=== PATIENT | male | born 1945 | race American Indian/Alaskan Native ===

== ENCOUNTER 2016-12-20 23:13 | Inpatient (IN) | payer MEDICARE ==
[2016-12-21 00:17] LABS: Basophils % (Auto) 1.2 % (0.0-1.8); Eosinophils % (Auto) 1.7 % (0.0-4.3); Hematocrit 41.1 % (35.5-45.6); Hemoglobin 13.5 gm/dl (11.8-15.2); Mean Corpuscular HGB Conc 33 % (32-34); Mean Corpuscular Hemoglobin 29 pg (28-32); Mean Corpuscular Volume 87 fl (84-94); Platelet Count 311 K/mm3 (140-440); Red Blood Count 4.72 M/mm3 (3.65-5.03); Red Cell Distribution Width 14.6 % (13.2-15.2); White Blood Count 6.5 K/mm3 (4.5-11.0)
[2016-12-21 00:32] LABS: INR 1.13 (0.87-1.13)
[2016-12-21 00:33] LABS: Partial Thromboplastin Time 34.7 Sec. (24.2-36.6)
[2016-12-21 00:37] LABS: Anion Gap 24 mmol/L; BUN/Creatinine Ratio 11.11; Blood Urea Nitrogen 10 mg/dL (9-20); Calcium 9.3 mg/dL (8.4-10.2); Carbon Dioxide 20 mmol/L (22-30); Chloride 103.9 mmol/L (98-107); Glucose 86 mg/dL (75-100); Potassium 3.6 mmol/L (3.6-5.0); Sodium 144 mmol/L (137-145)
--- NOTE | 2016-12-21 00:49 | Cat Scan Report ---
FINAL REPORT PROCEDURE: CT HEAD/BRAIN WO CON TECHNIQUE: Computerized tomography of the head was performed without contrast material. HISTORY: NUMBNESS IN ARMS AND LEGS X 2 WEEKS , FALLING COMPARISON: No prior studies are available for comparison. FINDINGS: Skull and scalp: Normal. Paranasal sinuses: Normal. Ventricles and subarachnoid spaces: Normal. Cerebrum: No evidence of hemorrhage, acute infarction or mass. Mild atrophy. Slight periventricular deep white matter changes. Cerebellum and brainstem: No evidence of hemorrhage, acute infarction or mass. Vasculature: Normal. Comments: None. IMPRESSION: There is no evidence of an acute intracranial process. Minimal atrophy is noted. Slight periventricular deep white matter changes.
--- NOTE | 2016-12-21 01:01 | Emergency Department Report ---
HPI - General Chief Complaint: Neuro Symptoms/Deficit Time Seen by Provider: 12/21/16 00:45 - HPI HPI: Room 8 The patient is a 71-year-old male presenting with a chief complaint of weakness and numbness in the extremities. The patient states for approximately 8 days he 's had intermittent numbness in both legs from mid thigh distally. Patient also complains of weakness in the left leg which causes him to fall at times. The patient states he exhibits numbness intermittently in both hands in addition to weakness as he has difficulty picking things up mostly with the right hand. Patient denies dysarthria, dysphagia or headache. The patient had 2 falls today. States that he has difficulty controlling his left lower extremity. Location: [see above] Duration: Intermittent times 8 days Quality: Numbness, weakness Severity: Moderate Modifying factors: [see above] Context: [see above] Mode of transportation: Unknown ED Past Medical Hx - Past Medical History Previous Medical History?: No - Surgical History Past Surgical History?: Yes Additional Surgical History: Lumbar disc surgery 2003 - Family History Family history: no significant - Social History Smoking Status: Former Smoker (none 30 years) Substance Use Type: None (denies illicit drug use) - Medications Home Medications: Home Medications Medication Instructions Recorded Confirmed Last Taken Type No Known Home Medications [No 12/21/16 12/21/16 Unknown History Reported Home Medications] ED Review of Systems ROS: Stated complaint: POSS STROKE Other details as noted in HPI Comment: All other systems reviewed and negative Constitutional: denies: chills, fever Eyes: denies: eye pain, eye discharge, vision change ENT: denies: ear pain, throat pain Respiratory: denies: cough, shortness of breath, wheezing Cardiovascular: denies: chest pain, palpitations Endocrine: no symptoms reported Gastrointestinal: denies: abdominal pain, nausea, diarrhea Genitourinary: denies: urgency, dysuria Musculoskeletal: denies: back pain, joint swelling, arthralgia Skin: denies: rash, lesions Neurological: weakness, numbness, paresthesias. denies: headache Psychiatric: denies: anxiety, depression Hematological/Lymphatic: denies: easy bleeding, easy bruising Physical Exam - Physical Exam Vital Signs: Vital Signs 12/20/16 23:32 Temperature 98.1 F Pulse Rate 74 Blood Pressure 121/72 O2 Sat by Pulse 97 Oximetry Physical Exam: GENERAL: The patient is well-developed well-nourished male lying on stretcher not appearing to be in acute distress. [] HEENT: Normocephalic. Atraumatic. Extraocular motions are intact. Patient has moist mucous membranes. NECK: Supple. Trachea midline CHEST/LUNGS: Clear to auscultation. There is no respiratory distress noted. HEART/CARDIOVASCULAR: Regular. There is no tachycardia. There is no gallop rub or murmur. ABDOMEN: Abdomen is soft, nontender. Patient has normal bowel sounds. There is no abdominal distention. SKIN: There is no rash. There is no edema. There is no diaphoresis. NEURO: The patient is awake, alert, and oriented. The patient is cooperative. The patient has no focal neurologic deficits. The patient has normal speech. Cranial nerves II through XII grossly intact, no drift, bath steward/stewardess equal bilaterally. Moves all extremities well. Normal sensation throughout MUSCULOSKELETAL: There is no evidence of acute injury. ED Course Vital Signs 12/20/16 23:32 Temperature 98.1 F Pulse Rate 74 Blood Pressure 121/72 O2 Sat by Pulse 97 Oximetry ED Medical Decision Making - Lab Data Result diagrams: 12/20/16 23:48 12/20/16 23:48 Laboratory Tests 12/20/16 12/20/16 12/20/16 23:48 23:48 23:48 WBC 6.5 RBC 4.72 Hgb 13.5 Hct 41.1 MCV 87 MCH 29 MCHC 33 RDW 14.6 Plt Count 311 Lymph % (Auto) 39.6 H [place] % (Auto) 6.4 Eos % (Auto) 1.7 Baso % (Auto) 1.2 Lymph # 2.6 [place] # 0.4 Eos # 0.1 Baso # 0.1 Seg Neutrophils % 51.1 Seg Neutrophils # 3.3 PT 14.4 INR 1.13 APTT 34.7 Thrombin Time Sodium 144 Potassium 3.6 Chloride 103.9 Carbon Dioxide 20 L Anion Gap 24 BUN 10 Creatinine 0.9 Estimated GFR > 60 BUN/Creatinine Ratio 11.11 Glucose 86 Calcium 9.3 Troponin T < 0.010 12/20/16 23:48 WBC RBC Hgb Hct MCV MCH MCHC RDW Plt Count Lymph % (Auto) [place] % (Auto) Eos % (Auto) Baso % (Auto) Lymph # [place] # Eos # Baso # Seg Neutrophils % Seg Neutrophils # PT INR APTT Thrombin Time 15.8 Sodium Potassium Chloride Carbon Dioxide Anion Gap BUN Creatinine Estimated GFR BUN/Creatinine Ratio Glucose Calcium Troponin T Laboratory Tests 12/20/16 12/20/16 12/20/16 23:48 23:48 23:48 WBC 6.5 RBC 4.72 Hgb 13.5 Hct 41.1 MCV 87 MCH 29 MCHC 33 RDW 14.6 Plt Count 311 Lymph % (Auto) 39.6 H [place] % (Auto) 6.4 Eos % (Auto) 1.7 Baso % (Auto) 1.2 Lymph # 2.6 [place] # 0.4 Eos # 0.1 Baso # 0.1 Seg Neutrophils % 51.1 Seg Neutrophils # 3.3 PT 14.4 INR 1.13 APTT 34.7 Thrombin Time Sodium 144 Potassium 3.6 Chloride 103.9 Carbon Dioxide 20 L Anion Gap 24 BUN 10 Creatinine 0.9 Estimated GFR > 60 BUN/Creatinine Ratio 11.11 Glucose 86 POC Glucose Calcium 9.3 Total Creatine Kinase Troponin T < 0.010 Urine Bilirubin Urine RBC (Auto) U Epithel Cells (Auto) 12/20/16 12/20/16 12/21/16 23:48 23:48 01:10 WBC RBC Hgb Hct MCV MCH MCHC RDW Plt Count Lymph % (Auto) [place] % (Auto) Eos % (Auto) Baso % (Auto) Lymph # [place] # Eos # Baso # Seg Neutrophils % Seg Neutrophils # PT INR APTT Thrombin Time 15.8 Sodium Potassium Chloride Carbon Dioxide Anion Gap BUN Creatinine Estimated GFR BUN/Creatinine Ratio Glucose POC Glucose 86 Calcium Total Creatine Kinase 504 H Troponin T Urine Bilirubin Urine RBC (Auto) U Epithel Cells (Auto) 12/21/16 01:14 WBC RBC Hgb Hct MCV MCH MCHC RDW Plt Count Lymph % (Auto) [place] % (Auto) Eos % (Auto) Baso % (Auto) Lymph # [place] # Eos # Baso # Seg Neutrophils % Seg Neutrophils # PT INR APTT Thrombin Time Sodium Potassium Chloride Carbon Dioxide Anion Gap BUN Creatinine Estimated GFR BUN/Creatinine Ratio Glucose POC Glucose Calcium Total Creatine Kinase Troponin T Urine Bilirubin Neg Urine RBC (Auto) 5.0 U Epithel Cells (Auto) < 1.0 - EKG Data -: EKG Interpreted by Me EKG shows normal: sinus rhythm Rate: normal - EKG Data When compared to previous EKG there are: previous EKG unavailable Interpretation: nonspecific ST-T wave dominique (T-wave inversion in lead aVL) - Radiology Data Radiology results: report reviewed (CT head), image reviewed (CT head) CT head (read by radiologist)-there is no evidence of acute intracranial process. Minimal atrophy is noted. Slight periventricular deep white matter changes. - Differential Diagnosis TIA, polymyositis, multiple sclerosis, carpal tunnel syndrome Critical care attestation.: If time is entered above; I have spent that time in minutes in the direct care of this critically ill patient, excluding procedure time. ED Disposition Clinical Impression: TIA (transient ischemic attack) Disposition: DC-[id number] OP ADMIT IP TO THIS HOSP Is pt being admited?: Yes Does the pt Need Aspirin: Yes Condition: Fair Referrals: PRIMARY CARE, [Primary Care Provider] - 3-5 Days Time of Disposition: 01:05 (hospitalist paged)
[2016-12-21] MEDS ORDERED: ASPIRIN PO ONE (01:05)
[2016-12-21] MEDS ORDERED: TYLENOL PO PRN (02:34)
[2016-12-21 02:38] LABS: Bilirubin,Urine NEG (Negative); Blood,Urine SM (Negative); Ketones,Urine NEG (Negative); Leukocyte Esterase,Urine NEG (Negative); Mucus,Urine FEW /HPF; Nitrite,Urine NEG (Negative); Protein,Urine <15 mg/dL mg/dL (Negative); Urobilinogen,Urine < 2.0 mg/dL (<2.0)
[2016-12-21] MEDS: NACL 0.9% 1000 ML 1,000 ML IV SCH ×2 (04:47→22:27)
--- NOTE | 2016-12-21 05:26 | History and Physical Report ---
CHIEF COMPLAINT: Numbness in the lower extremities and also weakness in the lower extremities. HISTORY OF PRESENTING ILLNESS: The patient is a 71-year-old male who has been having intermittent numbness in both legs going on for 8 days and also there is a complaint of weakness in the left leg, which causes the patient to fall down from time to time. The patient also complained of numbness in both hands with some weakness also in both hands making it difficult to picker operator things. The patient denies any history of speech impairment. Denies any history of dizziness, headache, or any problem with swallowing. PAST MEDICAL HISTORY: Unremarkable. PAST SURGICAL HISTORY: Pertinent for lumbar disk surgery in 2003. FAMILY HISTORY: Noncontributory. SOCIAL HISTORY: The patient is a former smoker. Does not smoke cigarettes anymore. Does not drink alcohol and does not use illicit drugs. MEDICATIONS: The patient is on 1% hydrocortisone cream, which is applied topically 3 times a day. ALLERGIES: There is no known drug allergy. REVIEW OF SYSTEMS: CONSTITUTIONAL: There is no fever. No chills. No diaphoresis. HEENT: There is no headache or sore throat. CARDIOVASCULAR: There is no chest pain or orthopnea. RESPIRATORY: There is no shortness of breath or cough. GASTROINTESTINAL: There is no nausea, no vomiting, no abdominal pain, diarrhea, or constipation. NEUROLOGIC: Numbness in both upper and lower limbs noted. Weakness involving both upper limbs and left leg noted. There is no change in mental status. MUSCULOSKELETAL: Weakness in both upper limbs and the left leg noted. There is no joint swelling. DERMATOLOGIC: There is no skin rash or itching. GENITOURINARY: There is no dysuria, hematuria, or flank pain. Rest of system review is normal. PHYSICAL EXAMINATION: GENERAL: At the time of exam, the patient was found to be alert, oriented x3, and not in acute distress. VITAL SIGNS: Temperature of 98.1 degrees Fahrenheit, pulse of 74, respirations 16, blood pressure 116/64, O2 sat of 96% on room air. HEENT: Pupils to be equal, round, reactive to light and accommodating. Extraocular muscles are intact. NECK: Supple with no JVD or carotid bruit. CARDIOVASCULAR SYSTEM: First and second heart sounds with no gallops or murmur. RESPIRATORY SYSTEM: Good air entry on both sides of the lung with no abnormal breath sounds. GASTROINTESTINAL: Abdomen to be full, soft, nontender with no organomegaly or rigidity. NEUROLOGIC: No focal deficits. MUSCULOSKELETAL: No joint tenderness or swelling. DERMATOLOGIC: No skin rash. GENITOURINARY: No costovertebral angle tenderness. PERTINENT LABORATORY AND IMAGING STUDIES: The patient has CBC done that came back unremarkable, except for CBC differential that shows elevated lymphocyte count of 39.6%. The patient's chemistry shows slight decrease in CO2 of 20 and slightly elevated total CPK of 504. The patient had a CT of the head done with no contrast and the results show there is no evidence of acute intracranial process. There is finding of minimal atrophy and slight periventricular deep white matter changes. DIAGNOSES: 1. Numbness and weakness of the upper and lower limbs. 2. Transient ischemic attack. PLAN: The patient will be admitted to medical floor on telemetry and will have MRI of the brain without contrast done in the morning. The patient will also have complete echocardiogram done this morning with the on-call computer hardware designer to read and the patient will be on bilateral carotid Doppler. DVT prophylaxis will be through sequential compressive device, and the patient will be on IV normal saline at 75 mL an hour and will have physical therapy evaluation and treatment in the morning. The patient will be on aspirin 325 mg by mouth daily and will be on p.r.n. medications like Tylenol 650 mg every 4 hours for fever and headache. The patient's diet will be regular diet. There is no Neurology consult at this time but whenever the Neurology consult comes on board and if the patient is still on admission, there will be consult. JOB# [id number] OCN/NTS
[2016-12-21 06:21] LABS: Creatine Kinase MB 6.3 ng/mL (0.0-4.0)
[2016-12-21 06:24] LABS: Creatine Kinase 493 units/L (55-170)
--- NOTE | 2016-12-21 12:51 | Magnetic Resonance Report ---
MRI OF THE BRAIN WITHOUT CONTRAST: HISTORY: TIA PROCEDURE: Multiplanar, multisequence MR imaging of the brain without IV contrast was performed. FINDINGS: Mild nonspecific chronic periventricular white matter changes are identified. Otherwise, the brain parenchyma signal intensity and its garcia-white interface are within normal limits. No evidence for acute ischemia, hemorrhage or mass. No chronic infarct or extra-axial fluid collection. The midline structures are central. The basal cisterns are patent. Normal ventricular size. The orbital cavities and sella turcica demonstrate no abnormality. The visualized paranasal sinuses and mastoid air cells are well aerated. IMPRESSION: Mild nonspecific chronic white matter changes. No acute intracranial process.
--- NOTE | 2016-12-21 12:51 | Magnetic Resonance Report ---
MRA HEAD WITHOUT CONTRAST HISTORY: Stroke, TIA. Cbci-[id number]-dzuady imaging with MIP reformations of the elim ira of [place] is submitted. The arteries appear widely patent and free of hemodynamically significant stenosis or aneurysm dilatation. Both vertebral arteries are identified appearing patent as well. IMPRESSION: Unremarkable MRA head.
[2016-12-21] MEDS: ASPIRIN PO SCH (14:00)
[2016-12-21] MEDS ORDERED: ATIVAN IV NR (14:15)
--- NOTE | 2016-12-21 14:21 | Progress Note ---
Assessment and Plan Assessment and plan: Patient is 71-year-old man history of chronic back pain on narcotics who presents with bilateral hand weakness, poor strength in his hands. Patient was admitted for stroke versus TIA versus other. MRI of the brain shows no acute findings, carotid ultrasound read as unremarkable. Pcp Dr. Cummings -Paresthesias of the hands no TIA because symptoms resolved, no CVA, was likely arthritic/carpal tunnel syndrome -Bradycardia: Continue telemetry, echo still pending -Paresthesias of the legs degenerative: Ordered MRI of the spine patient's positive Almeida been having will go tomorrow with bonding and composite fabricator IV Ativan. -Chronic pain syndrome on narcotics: Continue to monitor -DVT prophylaxis: Added subcutaneous Lovenox Full code Disposition: Echocardiogram pending, anticipate discharge tomorrow History Interval history: Patient seen and examined. Follow up on current diagnosis/bilateral hand weakness. Overnight uneventful. No cp, sob, n/v or severe headaches. Imaging, old records, testing, labs, nursing notes reviewed. at bedside gives a history of difficult ambulation, bilateral thigh pains, poor balance and would like his old herniated back disc to be re-evaluated. Hospitalist Physical - Physical exam Narrative exam: GEN: WDWN, NAD, AWAKE, ALERT, ORIENTATED x 3 HEENT: NCAT, PERRL, EOMI, OP CLEAR NECK: SUPPLE, NO THYROMEGALY, NO JVD, NO LAD CVS: Regular bradycardia, NORMAL S1S2 LUNGS/CHEST: CTA B, NORMAL CHEST EXPANSION B, GOOD AIR ENTRY B ABD: SOFT, NTND, GBS, NO REBOUND OR GUARDING EXT/SKIN: NO SIGNIFICANT EDEMA OR RASH MSK: FROM X 4 EXTREMITIES NEURO: CN 2-12 GROSSLY INTACT, NO new FOCAL DEFICITS PSY: CALM - Constitutional Vitals: Temp Pulse Resp BP Pulse Ox 97.8 F 81 18 125/72 97 12/21/16 08:49 12/21/16 10:08 12/21/16 10:00 12/21/16 08:49 12/21/16 10:00 Results - Labs CBC & Chem 7: 12/20/16 23:48 12/20/16 23:48 Labs: Laboratory Last Values WBC 6.5 K/mm3 (4.5-11.0) 12/20/16 23:48 RBC 4.72 M/mm3 (3.65-5.03) 12/20/16 23:48 Hgb 13.5 gm/dl (11.8-15.2) 12/20/16 23:48 Hct 41.1 % (35.5-45.6) 12/20/16 23:48 MCV 87 fl (84-94) 12/20/16 23:48 MCH 29 pg (28-32) 12/20/16 23:48 MCHC 33 % (32-34) 12/20/16 23:48 RDW 14.6 % (13.2-15.2) 12/20/16 23:48 Plt Count 311 K/mm3 (140-440) 12/20/16 23:48 Lymph % (Auto) 39.6 % (13.4-35.0) H 12/20/16 23:48 [place] % (Auto) 6.4 % (0.0-7.3) 12/20/16 23:48 Eos % (Auto) 1.7 % (0.0-4.3) 12/20/16 23:48 Baso % (Auto) 1.2 % (0.0-1.8) 12/20/16 23:48 Lymph # 2.6 K/mm3 (1.2-5.4) 12/20/16 23:48 [place] # 0.4 K/mm3 (0.0-0.8) 12/20/16 23:48 Eos # 0.1 K/mm3 (0.0-0.4) 12/20/16 23:48 Baso # 0.1 K/mm3 (0.0-0.1) 12/20/16 23:48 Seg Neutrophils % 51.1 % (40.0-70.0) 12/20/16 23:48 Seg Neutrophils # 3.3 K/mm3 (1.8-7.7) 12/20/16 23:48 PT 14.4 Sec. (12.2-14.9) 12/20/16 23:48 INR 1.13 (0.87-1.13) 12/20/16 23:48 APTT 34.7 Sec. (24.2-36.6) 12/20/16 23:48 Thrombin Time 15.8 Sec. (15.1-19.6) 12/20/16 23:48 Sodium 144 mmol/L (137-145) 12/20/16 23:48 Potassium 3.6 mmol/L (3.6-5.0) 12/20/16 23:48 Chloride 103.9 mmol/L (98-107) 12/20/16 23:48 Carbon Dioxide 20 mmol/L (22-30) L 12/20/16 23:48 Anion Gap 24 mmol/L 12/20/16 23:48 BUN 10 mg/dL (9-20) 12/20/16 23:48 Creatinine 0.9 mg/dL (0.8-1.5) 12/20/16 23:48 Estimated GFR > 60 ml/min 12/20/16 23:48 BUN/Creatinine Ratio 11.11 % 12/20/16 23:48 Glucose 86 mg/dL (75-100) 12/20/16 23:48 POC Glucose 86 (70-105) 12/21/16 01:10 Calcium 9.3 mg/dL (8.4-10.2) 12/20/16 23:48 Total Creatine Kinase 493 units/L (55-170) H 12/21/16 05:40 CK-MB (CK-2) 6.3 ng/mL (0.0-4.0) H 12/21/16 05:40 CK-MB (CK-2) Rel Index 1.2 (0-4) 12/21/16 05:40 Troponin T < 0.010 ng/mL (0.00-0.029) 12/21/16 05:40 Urine Color Yellow (Yellow) 12/21/16 01:14 Urine Turbidity Clear (Clear) 12/21/16 01:14 Urine pH 5.0 (5.0-7.0) 12/21/16 01:14 Ur Specific [place] 1.023 (1.003-1.030) 12/21/16 01:14 Urine Protein <15 mg/dl mg/dL (Negative) 12/21/16 01:14 Urine Glucose (UA) Neg mg/dL (Negative) 12/21/16 01:14 Urine Ketones Neg mg/dL (Negative) 12/21/16 01:14 Urine Blood Sm (Negative) 12/21/16 01:14 Urine Nitrite Neg (Negative) 12/21/16 01:14 Urine Bilirubin Neg (Negative) 12/21/16 01:14 Urine Urobilinogen < 2.0 mg/dL (<2.0) 12/21/16 01:14 Ur Leukocyte Esterase Neg (Negative) 12/21/16 01:14 Urine WBC (Auto) 1.0 /HPF (0.0-6.0) 12/21/16 01:14 Urine RBC (Auto) 5.0 /HPF (0.0-6.0) 12/21/16 01:14 U Epithel Cells (Auto) < 1.0 /HPF (0-13.0) 12/21/16 01:14 Calcium Oxalate Crystal 2+ 12/21/16 01:14 Urine Mucus Few /HPF 12/21/16 01:14
[2016-12-21 14:25] LABS: Creatine Kinase MB 7.3 ng/mL (0.0-4.0)
[2016-12-21 14:26] LABS: Creatine Kinase 603 units/L (55-170)
--- NOTE | 2016-12-21 15:09 | Admit Criteria Form ---
Admission Criteria Documentation: NEUROLOGY GRG Clinical Indications for Admission to Inpatient Care (Place ' X' for any and all applicable criteria): Hospital admission is needed for appropriate care of the patient because of 1 or more of the following: [ ]I. Encephalitis [ ]II. Severe [employer]LECT[employer] infections indicated by 1 or more of the following(1)(2)(3) : [ ]a) Intracranial abscess [ ]b) Spinal abscess or myelitis [ ]c) Tuberculous or other nonbacterial, nonviral ELECTRICIAN MA[employer] infection(8) [ ]III. Vasculitis and 1 or more of the following(14)(15): []a) Altered mental status that is severe or persistent or other acute neurologic change []b) Psychosis []c) Seizure [ ]IV. Status epilepticus or repetitive seizures not controlled with emergent treatment [A] (7)(8) [ ]V. Altered mental status that is severe or persistent [ ]. Transient alteration in consciousness with high-risk etiology; examples include (12)(13): [ ]a) Cardiovascular source [ ]b) Cataplexy [ ]VII. Cerebral aneurysm requiring ANY ONE of the following(14): [ ]a) IV antihypertensives or vasoactive agents [ ]b) Sedation and analgesia for suspected leak [ ]c) Need for external ventricular drainage and cerebral perfusion pressure monitoring [ ]d) Emergent evaluation to determine need for surgical clipping or endovascular coiling by interventional radiology. If surgery is required ( Also use Craniotomy, Supratentorial, for Surgery of Bleeding Intracranial Aneurysm (for bleeding aneurysm) or Craniotomy, Supratentorial (for nonbleeding aneurysm) as appropriate. [ ]VIII. New-onset severe neurologic symptom requiring inpatient care indicated by ANY ONE of the following: [ ]a) Aphasia(15) [ ]b) Weakness (grade 3 or less) [ ]c) Paralysis (eg, hemiplegia) [ ]d) Spasticity(16) [ ]e) Dystonia [ ]e) Ataxia(17) [ ]f) Amnesia(18) [ ]g) Involuntary movements(19) [ ]h) Vertigo [ ] Visual loss [ ]i) Other severe neurologic finding (eg, papilledema, mass effect on imaging, myoclonus not treatable at alternative level of care (eg, observation care) [ ]IX. Guillain-[place] syndrome(20) [ ]X. Myasthenia gravis crisis or inpatient monitoring need as indicated by 1 or more of the following(21): [ ]a) Intensive treatment (eg, course of plasmapheresis) with inadequate outpatient situation to monitor patients status [ ]b) Inadequate airway protection [ ]c) Respiratory insufficiency requiring intubation or inpatient. monitoring [ ]d) Progressive dysphagia with failure to thrive [ ]XI. Multiple sclerosis or other acute demyelinating disease requiring inpatient care as indicated by 1 or more of the following (22)(23): [ ]a) Acute severe deterioration requiring inpatient treatment (eg, IV steroids, plasmapheresis, close observation) [ ]b) Acute complication requiring inpatient care (eg, sepsis, severe decubitus, aspiration) [ ]XII.Parkinson disease requiring inpatient care (Also use Optimal Recovery Care Criteria or General Recovery Criteria as appropriate) indicated by 1 or more of the following(25): [ ]a) Infection (eg, aspiration pneumonia) not treatable at alternative level of care [ ]b Dehydration that is severe or persistent [ ]c) Life-threatening agitation or psychotic behavior not treatable on emergency, observation care, or alternative level (eg, residential) basis [ ]d) Severe medication withdrawal effects (eg, freezing, neuroleptic malignant syndrome) not responsive to emergency and observation care treatment ( as appropriate) [ ]e) Other severe manifestation not treatable at alternative level of care [ ]XII. Amyotrophic lateral sclerosis with inpatient care needs as indicated by ANY ONE of the following(26): [ ]a) Acute complications (eg, aspiration pneumonia, sepsis ) requiring inpatient care ( see other optimal Recovery Guideline as appropriate) [ ]b) Dehydration that is severe persistent AND artificial support desired [ ]c) Inadequate airway protection AND artificial support desired [ ]d) Severe ventilatory insufficiency AND artificial support desired [ ]XIII. Myasthenia gravis crisis or inpatient monitoring need as indicated by 1 or more of the following(21): [] a) Inadequate airway protection []b) Respiratory insufficiency requiring intubation or inpatient monitoring []c) Progressive dysphagia with failure to thrive []d) Intensive treatment (e.g., course of plasmapheresis) with inadequate outpatient situation to monitor patients status [ ]XIV. Multiple sclerosis or other acute demyelinating disease requiring inpatient care indicated by 1 or more of the following[C](36)(43)(44)(45)(46): []a) Acute severe deterioration requiring inpatient treatment (eg, IV steroids, plasmapheresis, close observation) []b) Acute complication requiring inpatient care (eg, sepsis, severe decubitus, aspiration) [ ]XV. Intracranial hypertension (e.g., pseudotumor cerebri) requiring inpatient care (e.g., acute visual loss, inadequate oral intake) (47)(48)(49) [ ]XVI. Parkinson disease requiring inpatient care (Also use Optimal Recovery Care Criteria or General Recovery Criteria as appropriate) indicated by 1 or more of the following(25): [] a) Infection (e.g., aspiration pneumonia) not treatable at alternative level of care []b) Volume depletion not responsive to emergency and observation care treatment (as appropriate) []c) Life-threatening agitation or psychotic behavior not treatable on emergency, observation care, or alternative level (e.g., residential) basis []d) Severe medication withdrawal effects (e.g., freezing, neuroleptic malignant syndrome) not responsive to emergency and observation care treatment (as appropriate) []e) Other severe manifestation not treatable at alternative level of care [ ]XVII. Amyotrophic lateral sclerosis with inpatient care needs as indicated by1 or more of the following(42): []a) Acute complications (eg, aspiration pneumonia, sepsis) requiring inpatient care (see other Optimal Recovery Guideline or General Recovery Guideline as appropriate) []b) Dehydration that is severe or persistent AND artificial support desired []c) Inadequate airway protection AND artificial support desired []d) Severe ventilatory insufficiency AND artificial support desired [ ]XVIII. Severe myopathy, neuropathy, or other neuromuscular disease indicated by 1 or more of the following(42)(52)(53)(54): []a ) New-onset severe diffuse weakness (eg, strength 3/5 or less) []b) Severe dysphagia []c) Dyspnea at rest or with minimal exertion (new) []d) Inadequate airway protection []e) Inadequate ventilation indicated by 1 or more of the following : i) Partial pressure of carbon dioxide greater than 44 mm Hg ( 5.9 kPa) (new) ii) Reduced peak expiratory flow rate (new) iii) Vital capacity less than 50% of predicted (less than 15 mL/kg) iv) Peak inspiratory force less negative than -30 cm H2O (- 2942 Pa) [ ]XVII.Complications of congenital or degenerative disease (eg, infection, seizures, dehydration, injury) not responsive to emergency and observation care treatment (as appropriate ) [C](16)(29)(30) [ ]XVIII.Suspected or confirmed nerve or muscle toxic injury, including ANY ONE of the following: [ ]a) Rhabdomyolysis(31) i) Acute renal failure ii) Dehydration that is severe or persistent iii) Altered mental status that is severe or persistent iv) Electrolyte abnormality that remains after emergency or observation level care ( as appropriate) [ ]b) Botulism(32) [ ]c) Other severe toxin-induced sign or symptom [ ]XIX. Neurologic trauma requiring inpatient treatment (medical) indicated by ANY ONE of the following(33)(34): [ ]a) Vital signs or neurologic signs more frequently than every 4 hours [ ]b) Hyperosmolar therapy [ ]c) Respiratory monitoring [ ]d) Intracranial pressure monitoring and treatment [ ]e) Stabilization and immobilization device placement (eg, braces, body jacket) [ ]f) Intubation & mechanical ventilation for airway protection or therapeutic hyperventilation [ ]g) Other treatment or monitoring needed that requires inpatient level of care [ ]XX.Complications of neurologic devices (eg, ventricular shunt, neurostimulator) requiring 1 or more of the following(35)(36): [ ]a) IV antibiotics with monitoring while awaiting culture results [ ]b) Monitoring for hydrocephalus [X ]XXI. Neurology condition symptom, or finding for which emergency and observation care have failed or are not considered appropriate. See General Criteria: Observation Care ISC, General Admission Criteria GRG, or Pediatric General Admission Criteria GRG guideline as appropriate. The original [facility] M[facility] content created by [employer] has been revised. The portions of the content which have been revised are identified through the use of italic text or in bold, and [facility] has neither reviewed nor approved the modified material. All other unmodified content is copyright [facility] Please see references footnoted in the original [facility] edition 2016 Admission Criteria Met: Yes
[2016-12-22 05:37] LABS: Hematocrit 36.5 % (35.5-45.6); Mean Corpuscular HGB Conc 33 % (32-34); Mean Corpuscular Hemoglobin 28 pg (28-32); Mean Corpuscular Volume 86 fl (84-94); Platelet Count 250 K/mm3 (140-440); Red Blood Count 4.24 M/mm3 (3.65-5.03); Red Cell Distribution Width 14.7 % (13.2-15.2); White Blood Count 5.6 K/mm3 (4.5-11.0)
[2016-12-22 06:05] LABS: Anion Gap 18 mmol/L; BUN/Creatinine Ratio 13.33; Blood Urea Nitrogen 12 mg/dL (9-20); Calcium 8.7 mg/dL (8.4-10.2); Carbon Dioxide 25 mmol/L (22-30); Chloride 103.9 mmol/L (98-107); Glucose 107 mg/dL (75-100); Potassium 4.2 mmol/L (3.6-5.0); Sodium 143 mmol/L (137-145)
[2016-12-22] MEDS: ASPIRIN PO SCH (10:00)
[2016-12-22] MEDS ORDERED: ATIVAN IV ONE (11:08)
--- NOTE | 2016-12-22 12:53 | Consultation ---
History of Present Illness Consult date: 12/22/16 Consult reason: bradycardia History of present illness: This is a 71yr old male who presented with bilateral upper and lower extremity numbness resulting in frequent falls. Cardiac consultation is requested for sinus bradycardia seen on telemetry. There is no reported chest pain, shortness of breath or dizziness. There was no loss of consciousness. Patient has remained asymptomatic. Labs shows a normal TSH. Patient has no prior cardiac history or workup. Medications and Allergies Allergies Allergy/AdvReac Type Severity Reaction Status Date / Time No Known Allergies Allergy Verified 12/21/16 01:18 Home Medications Medication Instructions Recorded Confirmed Last Taken Type No Known Home Medications [No 12/21/16 12/21/16 Unknown History Reported Home Medications] Active Meds: Active Medications Acetaminophen (Tylenol) 650 mg PO Q4H PRN PRN Reason: For Pain/Fever/Headache Last Admin: 12/22/16 05:19 Dose: 650 mg Aspirin (Aspirin) 325 mg PO QDAY FREDDIE Last Admin: 12/22/16 10:00 Dose: 325 mg Enoxaparin Sodium (Lovenox) 40 mg SUB-Q QDAY@2200 FRDEDIE Sodium Chloride (Nacl 0.9% 1000 Ml) 1,000 mls @ 75 mls/hr IV DIRECT FREDDIE Last Admin: 12/21/16 22:27 Dose: 75 mls/hr Physical Examination Vital Signs Temp Pulse BP Pulse Ox 98.1 F 74 121/72 97 12/20/16 23:32 12/20/16 23:32 12/20/16 23:32 12/20/16 23:32 Results 12/22/16 04:34 12/22/16 04:34 Cardiac Enzymes 12/21/16 Range/Units 13:25 CK-MB (CK-2) 7.3 H (0.0-4.0) ng/mL CBC 12/22/16 Range/Units 04:34 WBC 5.6 (4.5-11.0) K/mm3 RBC 4.24 (3.65-5.03) M/mm3 Hgb 12.0 (11.8-15.2) gm/dl Hct 36.5 (35.5-45.6) % Plt Count 250 (140-440) K/mm3 Comprehensive Metabolic Panel 12/22/16 Range/Units 04:34 Sodium 143 (137-145) mmol/L Potassium 4.2 (3.6-5.0) mmol/L Chloride 103.9 (98-107) mmol/L Carbon Dioxide 25 (22-30) mmol/L BUN 12 (9-20) mg/dL Creatinine 0.9 (0.8-1.5) mg/dL Glucose 107 H (75-100) mg/dL Calcium 8.7 (8.4-10.2) mg/dL Assessment and Plan Numbness/weakness of bilateral upper and lower extremities Sinus bradycardia -patient remains asymptomatic normal TSH normal LV systolic function, EF 55-60% on echo
--- NOTE | 2016-12-22 12:54 | Progress Note ---
Assessment and Plan Assessment and plan: Patient is 71-year-old man history of chronic back pain on narcotics who presents with bilateral hand weakness, poor strength in his hands. Patient was admitted for stroke versus TIA versus other. MRI of the brain shows no acute findings, carotid ultrasound read as unremarkable. Pcp Dr. Cummings -Paresthesias of the hands no TIA because symptoms resolved, no CVA, was likely arthritic/carpal tunnel syndrome -Bradycardia: Continue telemetry, echo still pending -Paresthesias of the legs degenerative: Ordered MRI of the spine patient's positive Almeida been having will go tomorrow with associate application developer IV Ativan. -Chronic pain syndrome on narcotics: Continue to monitor -DVT prophylaxis: Added subcutaneous Lovenox Full code 12/21/2016 transthoracic echo report as estimated EF 55-60%, abnormal left trigger diastolic filling consistent with impaired relaxation, right atrium is mildly dilated, no atrial septal defect, mild MR, mild TR 12/22/16: Overnight heart rate dropped into the 40s, we'll consult cardiology Patient gives a history of falling and inability to ambulate, physical therapy consult pending, patient unable to get MRI due to claustrophobia, despite receiving IV 1 mg Ativan. We'll cancel the test, I instructed him to get an outpatient open MRI with his primary care provider Disposition: Continue inpatient care, DC once cleared by cardiology History Interval history: Patient seen and examined. Follow up on current diagnosis/bilateral hand weakness. Overnight uneventful. No cp, sob, n/v or severe headaches. Imaging, old records, testing, labs, nursing notes reviewed. at bedside gives a history of difficult ambulation, bilateral thigh pains, poor balance and would like his old herniated back disc to be re-evaluated. Hospitalist Physical - Physical exam Narrative exam: GEN: WDWN, NAD, AWAKE, ALERT, ORIENTATED x 3 HEENT: NCAT, PERRL, EOMI, OP CLEAR NECK: SUPPLE, NO THYROMEGALY, NO JVD, NO LAD CVS: Regular bradycardia, NORMAL S1S2 LUNGS/CHEST: CTA B, NORMAL CHEST EXPANSION B, GOOD AIR ENTRY B ABD: SOFT, NTND, GBS, NO REBOUND OR GUARDING EXT/SKIN: NO SIGNIFICANT EDEMA OR RASH MSK: FROM X 4 EXTREMITIES NEURO: CN 2-12 GROSSLY INTACT, NO new FOCAL DEFICITS PSY: CALM - Constitutional Vitals: Temp Pulse Resp BP Pulse Ox 98.8 F 45 L 18 149/67 100 12/22/16 07:00 12/22/16 07:00 12/22/16 07:00 12/22/16 07:00 12/22/16 07:00 Results - Labs CBC & Chem 7: 12/22/16 04:34 12/22/16 04:34 Labs: Laboratory Last Values WBC 5.6 K/mm3 (4.5-11.0) 12/22/16 04:34 RBC 4.24 M/mm3 (3.65-5.03) 12/22/16 04:34 Hgb 12.0 gm/dl (11.8-15.2) 12/22/16 04:34 Hct 36.5 % (35.5-45.6) 12/22/16 04:34 MCV 86 fl (84-94) 12/22/16 04:34 MCH 28 pg (28-32) 12/22/16 04:34 MCHC 33 % (32-34) 12/22/16 04:34 RDW 14.7 % (13.2-15.2) 12/22/16 04:34 Plt Count 250 K/mm3 (140-440) 12/22/16 04:34 Lymph % (Auto) 39.6 % (13.4-35.0) H 12/20/16 23:48 [place] % (Auto) 6.4 % (0.0-7.3) 12/20/16 23:48 Eos % (Auto) 1.7 % (0.0-4.3) 12/20/16 23:48 Baso % (Auto) 1.2 % (0.0-1.8) 12/20/16 23:48 Lymph # 2.6 K/mm3 (1.2-5.4) 12/20/16 23:48 [place] # 0.4 K/mm3 (0.0-0.8) 12/20/16 23:48 Eos # 0.1 K/mm3 (0.0-0.4) 12/20/16 23:48 Baso # 0.1 K/mm3 (0.0-0.1) 12/20/16 23:48 Seg Neutrophils % 51.1 % (40.0-70.0) 12/20/16 23:48 Seg Neutrophils # 3.3 K/mm3 (1.8-7.7) 12/20/16 23:48 PT 14.4 Sec. (12.2-14.9) 12/20/16 23:48 INR 1.13 (0.87-1.13) 12/20/16 23:48 APTT 34.7 Sec. (24.2-36.6) 12/20/16 23:48 Thrombin Time 15.8 Sec. (15.1-19.6) 12/20/16 23:48 Sodium 143 mmol/L (137-145) 12/22/16 04:34 Potassium 4.2 mmol/L (3.6-5.0) 12/22/16 04:34 Chloride 103.9 mmol/L (98-107) 12/22/16 04:34 Carbon Dioxide 25 mmol/L (22-30) 12/22/16 04:34 Anion Gap 18 mmol/L 12/22/16 04:34 BUN 12 mg/dL (9-20) 12/22/16 04:34 Creatinine 0.9 mg/dL (0.8-1.5) 12/22/16 04:34 Estimated GFR > 60 ml/min 12/22/16 04:34 BUN/Creatinine Ratio 13.33 % 12/22/16 04:34 Glucose 107 mg/dL (75-100) H 12/22/16 04:34 POC Glucose 86 (70-105) 12/21/16 01:10 Calcium 8.7 mg/dL (8.4-10.2) 12/22/16 04:34 Total Creatine Kinase 603 units/L (55-170) H 12/21/16 13:25 CK-MB (CK-2) 7.3 ng/mL (0.0-4.0) H 12/21/16 13:25 CK-MB (CK-2) Rel Index 1.2 (0-4) 12/21/16 13:25 Troponin T < 0.010 ng/mL (0.00-0.029) 12/21/16 13:25 TSH 1.160 mlU/mL (0.270-4.200) 12/22/16 04:34 Urine Color Yellow (Yellow) 12/21/16 01:14 Urine Turbidity Clear (Clear) 12/21/16 01:14 Urine pH 5.0 (5.0-7.0) 12/21/16 01:14 Ur Specific [place] 1.023 (1.003-1.030) 12/21/16 01:14 Urine Protein <15 mg/dl mg/dL (Negative) 12/21/16 01:14 Urine Glucose (UA) Neg mg/dL (Negative) 12/21/16 01:14 Urine Ketones Neg mg/dL (Negative) 12/21/16 01:14 Urine Blood Sm (Negative) 12/21/16 01:14 Urine Nitrite Neg (Negative) 12/21/16 01:14 Urine Bilirubin Neg (Negative) 12/21/16 01:14 Urine Urobilinogen < 2.0 mg/dL (<2.0) 12/21/16 01:14 Ur Leukocyte Esterase Neg (Negative) 12/21/16 01:14 Urine WBC (Auto) 1.0 /HPF (0.0-6.0) 12/21/16 01:14 Urine RBC (Auto) 5.0 /HPF (0.0-6.0) 12/21/16 01:14 U Epithel Cells (Auto) < 1.0 /HPF (0-13.0) 12/21/16 01:14 Calcium Oxalate Crystal 2+ 12/21/16 01:14 Urine Mucus Few /HPF 12/21/16 01:14
--- NOTE | 2016-12-22 13:44 | Magnetic Resonance Report ---
MR THORACIC SPINE WITHOUT CONTRAST History: Back pain after fall. Technique: Multisequence, multiplanar MRI without contrast. Findings: There is a tiny syrinx in the upper thoracic spinal cord near the level of T3 measuring 2-3 cm in length. The remainder of the thoracic spinal cord is within normal limits. There is no evidence for central canal stenosis. The thoracic vertebral bodies, posterior elements, discs and neural foramina are within normal limits. There is no evidence for herniation or nerve impingement. Mild disc desiccation and narrowing is noted throughout the thoracic spine. Impression: Tiny syrinx in the upper thoracic spinal cord at the level of T3. Minimal degenerative disc disease. No evidence for fracture, malalignment or herniation.
--- NOTE | 2016-12-22 13:49 | Magnetic Resonance Report ---
MR CERVICAL SPINE WITHOUT CONTRAST HISTORY: Paresthesia. TECHNIQUE: Multisequence, multiplanar MRI without contrast. FINDINGS: C2-3: No abnormality. C3-4: A medium midline disc protrusion is identified which abuts the anterior surface of the spinal cord. Minimal facet arthropathy. Mild central canal narrowing at this level measures 7-8 mm in AP dimension. Mild bilateral neural foraminal stenosis is estimated at 50%. C4-5: A moderate to severe midline disc protrusion is present which exerts mass effect on the cervical spinal cord. There is severe central canal stenosis measuring 4 mm in AP dimension. Right neural foraminal narrowing is estimated at 50%. Left neural foraminal narrowing is estimated at 75%. C5-6: There is mild bilateral uncovertebral spurring. No central canal stenosis. Bilateral neural foraminal narrowing is estimated at 25%. C6-7: Mild bilateral uncovertebral spurring is evident. Mild facet arthropathy. Bilateral neural foraminal narrowing is estimated at 25%. C7-T1: No significant abnormality. The bone marrow signals within normal limits. There is no evidence for fracture or malalignment. The prevertebral soft tissues are unremarkable. 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 Medium midline disc herniation at C3-4 with no significant mass effect. Multilevel neural foraminal narrowing as described.
[2016-12-22] MEDS ORDERED: LOVENOX SUB-Q SCH (22:00)
--- NOTE | 2016-12-23 08:38 | Progress Note ---
Assessment and Plan Assessment and plan: Patient is 71-year-old man history of chronic back pain s/p Lumbar surgery on narcotics who presents with bilateral hand weakness, poor strength in his hands. Patient was admitted for stroke versus TIA versus other. MRI of the brain shows no acute findings, carotid ultrasound read as unremarkable. Pcp Dr. Grey -Paresthesias of the hands no TIA because symptoms resolved, no CVA, was likely arthritic/carpal tunnel syndrome -Bradycardia: Continue telemetry, echo reviewed -Paresthesias of the legs degenerative: Mri LS pending -Chronic pain syndrome on narcotics: Continue to monitor -DVT prophylaxis: Added subcutaneous Lovenox Full code 12/21/2016 transthoracic echo report as estimated EF 55-60%, abnormal left trigger diastolic filling consistent with impaired relaxation, right atrium is mildly dilated, no atrial septal defect, mild MR, mild TR 12/22/16: Overnight heart rate dropped into the 40s, we'll consult cardiology Patient gives a history of falling and inability to ambulate, physical therapy consult pending, patient unable to get MRI due to claustrophobia, despite receiving IV 1 mg Ativan. We'll cancel the test, I instructed him to get an outpatient open MRI with his primary care provider Disposition: Continue inpatient care, DC once cleared by cardiology 12/22/16 13:35 - Radiology Dept. Note by JULIUS VILLALPANDO, Acct Num: [id number] : 1945 Patient Age: 71, Nurse never called back in reference to sedation not working . lumbar spine not done. pt. continually moving legs Initialized on 12/22/16 13:35 - END OF NOTE called pcp office Dr. Daniella Grey at [facility] , spoke with Michelle, who refused to make an follow-up appointment for Mr. Gilmore and when I asked to speak with Dr. Grey, Michelle said she wasn' t available to speak with me. Michelle reports that Dr. Grey is busy seeing other patients and she is currently in a room with a patient. I gave her my phone number so that Dr. Grey can call me (never received a return phone call) is concerned about abnormal gait, PT has seen and recommend ambulation with cane which patient has at home. I have consulted and spoken with Dr. Contreras for this concern and MRIs reviews. Patient has had lumbar spine surgery before but can't recall the surgeon's name, I was hoping to salas more info from Dr. Grey. 12/23/16 MRI LS spine re-ordered after Dr. Contreras evaluated Mr. Kwan yesterday. I added iv ativan prn. MRI c spine shows large herniation most likely explaining the bilateral hand paresthesia. He will need Neurosurgeon evaluation which is not available here. I called [facility] for possible transfer spoke with Pham Mckenzie History Interval history: Patient seen and examined. Follow up on current diagnosis/bilateral hand weakness. Overnight uneventful. No cp, sob, n/v or severe headaches. Imaging, old records, testing, labs, nursing notes reviewed. at bedside gives a history of difficult ambulation, bilateral thigh pains, poor balance and would like his old herniated lumbar back disc to be re-evaluated. Hospitalist Physical - Physical exam Narrative exam: GEN: WDWN, NAD, AWAKE, ALERT, ORIENTATED x 3 HEENT: NCAT, PERRL, EOMI, OP CLEAR NECK: SUPPLE, NO THYROMEGALY, NO JVD, NO LAD CVS: Regular bradycardia, NORMAL S1S2 LUNGS/CHEST: CTA B, NORMAL CHEST EXPANSION B, GOOD AIR ENTRY B ABD: SOFT, NTND, GBS, NO REBOUND OR GUARDING EXT/SKIN: NO SIGNIFICANT EDEMA OR RASH MSK: FROM X 4 EXTREMITIES NEURO: CN 2-12 GROSSLY INTACT, NO new FOCAL DEFICITS, abn gait PSY: CALM - Constitutional Vitals: Temp Pulse Resp BP Pulse Ox 98.2 F 46 L 18 186/86 98 12/23/16 04:00 12/23/16 04:00 12/23/16 04:00 12/23/16 04:00 12/23/16 04:00 Results - Labs CBC & Chem 7: 12/22/16 04:34 12/22/16 04:34 Labs: Laboratory Last Values WBC 5.6 K/mm3 (4.5-11.0) 12/22/16 04:34 RBC 4.24 M/mm3 (3.65-5.03) 12/22/16 04:34 Hgb 12.0 gm/dl (11.8-15.2) 12/22/16 04:34 Hct 36.5 % (35.5-45.6) 12/22/16 04:34 MCV 86 fl (84-94) 12/22/16 04:34 MCH 28 pg (28-32) 12/22/16 04:34 MCHC 33 % (32-34) 12/22/16 04:34 RDW 14.7 % (13.2-15.2) 12/22/16 04:34 Plt Count 250 K/mm3 (140-440) 12/22/16 04:34 Lymph % (Auto) 39.6 % (13.4-35.0) H 12/20/16 23:48 [place]ipley % (Auto) 6.4 % (0.0-7.3) 12/20/16 23:48 Eos % (Auto) 1.7 % (0.0-4.3) 12/20/16 23:48 Baso % (Auto) 1.2 % (0.0-1.8) 12/20/16 23:48 Lymph # 2.6 K/mm3 (1.2-5.4) 12/20/16 23:48 Ripley # 0.4 K/mm3 (0.0-0.8) 12/20/16 23:48 Eos # 0.1 K/mm3 (0.0-0.4) 12/20/16 23:48 Baso # 0.1 K/mm3 (0.0-0.1) 12/20/16 23:48 Seg Neutrophils % 51.1 % (40.0-70.0) 12/20/16 23:48 Seg Neutrophils # 3.3 K/mm3 (1.8-7.7) 12/20/16 23:48 PT 14.4 Sec. (12.2-14.9) 12/20/16 23:48 INR 1.13 (0.87-1.13) 12/20/16 23:48 APTT 34.7 Sec. (24.2-36.6) 12/20/16 23:48 Thrombin Time 15.8 Sec. (15.1-19.6) 12/20/16 23:48 Sodium 143 mmol/L (137-145) 12/22/16 04:34 Potassium 4.2 mmol/L (3.6-5.0) 12/22/16 04:34 Chloride 103.9 mmol/L (98-107) 12/22/16 04:34 Carbon Dioxide 25 mmol/L (22-30) 12/22/16 04:34 Anion Gap 18 mmol/L 12/22/16 04:34 BUN 12 mg/dL (9-20) 12/22/16 04:34 Creatinine 0.9 mg/dL (0.8-1.5) 12/22/16 04:34 Estimated GFR > 60 ml/min 12/22/16 04:34 BUN/Creatinine Ratio 13.33 % 12/22/16 04:34 Glucose 107 mg/dL (75-100) H 12/22/16 04:34 POC Glucose 86 (70-105) 12/21/16 01:10 Calcium 8.7 mg/dL (8.4-10.2) 12/22/16 04:34 Total Creatine Kinase 603 units/L (55-170) H 12/21/16 13:25 CK-MB (CK-2) 7.3 ng/mL (0.0-4.0) H 12/21/16 13:25 CK-MB (CK-2) Rel Index 1.2 (0-4) 12/21/16 13:25 Troponin T < 0.010 ng/mL (0.00-0.029) 12/21/16 13:25 TSH 1.160 mlU/mL (0.270-4.200) 12/22/16 04:34 Urine Color Yellow (Yellow) 12/21/16 01:14 Urine Turbidity Clear (Clear) 12/21/16 01:14 Urine pH 5.0 (5.0-7.0) 12/21/16 01:14 Ur Specific [place] 1.023 (1.003-1.030) 12/21/16 01:14 Urine Protein <15 mg/dl mg/dL (Negative) 12/21/16 01:14 Urine Glucose (UA) Neg mg/dL (Negative) 12/21/16 01:14 Urine Ketones Neg mg/dL (Negative) 12/21/16 01:14 Urine Blood Sm (Negative) 12/21/16 01:14 Urine Nitrite Neg (Negative) 12/21/16 01:14 Urine Bilirubin Neg (Negative) 12/21/16 01:14 Urine Urobilinogen < 2.0 mg/dL (<2.0) 12/21/16 01:14 Ur Leukocyte Esterase Neg (Negative) 12/21/16 01:14 Urine WBC (Auto) 1.0 /HPF (0.0-6.0) 12/21/16 01:14 Urine RBC (Auto) 5.0 /HPF (0.0-6.0) 12/21/16 01:14 U Epithel Cells (Auto) < 1.0 /HPF (0-13.0) 12/21/16 01:14 Calcium Oxalate Crystal 2+ 12/21/16 01:14 Urine Mucus Few /HPF 12/21/16 01:14
[2016-12-23] MEDS: ATIVAN IV PRN ×2 (08:49→09:21)
--- NOTE | 2016-12-23 09:12 | Progress Note ---
Assessment and Plan 1. Asymptomatic bradycardia heart rate remains in the 40s 2. Numbness and weakness thought to be secondary to disc herniation 3. Labile hypertension 4. Recent cardiac workup included an echocardiogram that showed normal LV systolic function Recommendations No indication for pacemaker Monitor hypertension if needed can add low-dose amlodipine Patient stable to be discharged from cardiac standpoint Subjective Date of service: 12/23/16 Interval history: No significant events overnight Objective Vital Signs Temp Pulse Pulse Resp Resp BP Pulse Ox 12/23/16 04:00 98.2 F 46 L 18 186/86 98 12/23/16 03:20 40 L 12/23/16 00:38 98.4 F 44 L 18 156/77 99 12/23/16 00:18 60 12/22/16 21:15 20 12/22/16 20:55 20 12/22/16 20:51 98 12/22/16 20:31 98.5 F 50 L 18 133/64 98 12/22/16 16:00 98.6 F 63 20 149/70 100 12/22/16 14:42 52 L 96 12/22/16 14:40 46 L 12/22/16 10:00 98 - Physical Examination Narrative exam: GEN: NAD HEENT: Carotids 2+ NECK: SUPPLE, CVS: RRR, NORMAL S1S2 LUNGS/CHEST: CTA ABD: SOFT, MSK: FROM X 4 EXTREMITIES NEURO: CN 2-12 GROSSLY INTACT, NO FOCAL DEFICITS PSY: CALM
--- NOTE | 2016-12-23 10:26 | Magnetic Resonance Report ---
MRI LUMBAR SPINE WITHOUT CONTRAST: 12/23/16 CLINICAL: Fall and low back pain. TECHNIQUE: Sagittal and axial T1 and T2, and sagittal STIR sequences a 1.5 Cally magnet. FINDINGS: Normal tissue body height and alignment. Normal marrow signal with no bone contusion or fracture. The conus medullaris is normal and terminates at L1. L1-2: Intact. L2-3: Moderate circumferential disc bulge. Mild bilateral facet hypertrophy and ligamentum flavum hypertrophy. Moderate central canal stenosis with the AP diameter of the canal measuring 8 mm. Minimal bilateral neural foraminal narrowing. L3-4: Status post midline decompression laminectomy. Narrowing of the disc space and mild irregularity of the inferior L3 endplate. Small anterior osteophyte. Moderate circumferential disc bulge and a small focal central disc protrusion. Moderate central canal stenosis with AP diameter of the canal measuring 10 mm. Mild bilateral neural foraminal narrowing. L4-5: Status post midline decompression laminectomy. Moderate circumferential bulge of the disc. Bilateral facet hypertrophy and moderate bilateral neural foraminal narrowing. L5-S1: Status post midline decompression laminectomy. Large circumferential disc bulge. Bilateral facet hypertrophy and moderately severe bilateral neural foraminal narrowing on the left greater than right IMPRESSION: Multilevel degenerative disc disease with disc bulges and protrusions as described. Status post midline decompression laminectomy from L3-4 through L5-S1. Moderate spinal canal stenosis with the greatest stenosis at L2-3. No apparent traumatic injury.
[2016-12-23] MEDS: ASPIRIN PO SCH (10:52)
--- NOTE | 2016-12-23 11:50 | Discharge Summary ---
Providers - Providers Date of Admission: 12/21/16 02:20 Date of discharge: 12/23/16 Attending physician: JOAQUIN HORTA 12/21/16 06:27 Physical Therapy Evaluation and Treat [CONS] Routine Comment: Reason For Exam: TIA WITH WEAKNESS OF LIMBS 12/22/16 07:48 Consult to Physician [CONS] Routine Consulting Provider: HALIMA DAVILA Reason For Exam: marked bradycardia, ECHO pending since yesterday Place consult to:: Halima Davila MD Notified:: HALIMA DAVILA MD 12/22/16 14:15 Consult to Physician [CONS] Routine Consulting Provider: SARWAT CONTRERAS Reason For Exam: evaluate abnormal gait and evaluate for cva Place consult to:: Diane JORDAN Notified:: a service Phone number called:: [phone] Was contact made?: Yes If yes, spoke with:: jim Time called:: 09:22 Hospitalization Condition: Stable Hospital course: Patient is 71-year-old man history of chronic back pain s/p Lumbar surgery on narcotics who presents with bilateral hand weakness, poor strength in his hands. Patient was admitted for stroke versus TIA versus other. MRI of the brain shows no acute findings, carotid ultrasound read as unremarkable. Pcp Dr. Grey -Progressive Paresthesias of the hands no TIA, no CVA, see imaging -Bradycardia: Continue telemetry, echo reviewed -Paresthesias of the legs degenerative -Chronic pain syndrome on narcotics: Continue to monitor -DVT prophylaxis: Added subcutaneous Lovenox Full code 12/21/2016 transthoracic echo report as estimated EF 55-60%, abnormal left trigger diastolic filling consistent with impaired relaxation, right atrium is mildly dilated, no atrial septal defect, mild MR, mild TR 12/22/16: Overnight heart rate dropped into the 40s, we'll consult cardiology Patient gives a history of falling and inability to ambulate, physical therapy consult pending, patient unable to get MRI due to claustrophobia, despite receiving IV 1 mg Ativan. We'll cancel the test, I instructed him to get an outpatient open MRI with his primary care provider Disposition: Continue inpatient care, DC once cleared by cardiology 12/22/16 13:35 - Radiology Dept. Note by JULIUS VILLALPANDO, Acct Num: [id number] : 1945 Patient Age: 71, Nurse never called back in reference to sedation not working . lumbar spine not done. pt. continually moving legs Initialized on 12/22/16 13:35 - END OF NOTE called pcp office Dr. Daniella Grey at [facility] [phone], spoke with Michelle, who refused to make an follow-up appointment for Mr. Gilmore and when I asked to speak with Dr. Grey, Michelle said she wasn' t available to speak with me. Michelle reports that Dr. Grey is busy seeing other patients and she is currently in a room with a patient. I gave her my phone number so that Dr. Grey can call me (never received a return phone call) is concerned about abnormal gait, PT has seen and recommend ambulation with cane which patient has at home. I have consulted and spoken with Dr. Contreras for this concern and MRIs reviews. Patient has had lumbar spine surgery before but can't recall the surgeon's name, I was hoping to salas more info from Dr. Grey. 12/23/16 MRI LS spine re-ordered after Dr. Contreras evaluated Mr. Kwan yesterday. I added iv ativan prn. MRI c spine shows large herniation most likely explaining the bilateral hand paresthesia. He will need Neurosurgeon evaluation which is not available here. I called [facility] for possible transfer spoke with Pham Mckenzie and d/w neurosurgeon Dr. Pinto, since patient has had the bilateral hand weakness for "going on for awhile" per , he will see him outpatient per Cardiology, Dr. Maico Díza: 1. Asymptomatic bradycardia heart rate remains in the 40s 2. Numbness and weakness thought to be secondary to disc herniation 3. Labile hypertension 4. Recent cardiac workup included an echocardiogram that showed normal LV systolic function Recommendations No indication for pacemaker Monitor hypertension if needed can add low-dose amlodipine Patient stable to be discharged from cardiac standpoint MRI lumbar spine without contrast 12/23/2016 read as multilevel degenerative disc disease with disc bulges and protrusions as described, status post midline decompression laminectomy from L3-L4 through L5-S1, moderate spinal canal stenosis with the greatest stenosis at L2-3, no apparent traumatic injury. MRI thoracic spine without contrast 12/21/16 read as tiny syrinx in the upper thoracic spinal cord at the level of T3, normal degenerative disc disease, no evidence of fracture malalignment or herniation. MRI cervical spine without contrast read as large midline herniation at C4-5 with mass effect and central canal stenosis, medium midline disc herniation C3- 4 with no significant mass effects, multilevel neural foraminal narrowing MRA of the head read as unremarkable Mri of brain no acute findings Disposition: DC-01 TO HOME OR SELFCARE Time spent for discharge: 50 minutes Core Measure Documentation - Palliative Care Palliative Care/ Comfort Measures: Not Applicable - Core Measures Any of the following diagnoses?: none - VTE Discharge Requirements Deep Vein Thrombosis/Pulmonary Embolism Present on Admission: No Has pt received <5 days of overlap therapy or INR<2.0: No Anticoagulant overlap therapy prescribed at discharge: No Contraindication No Overlap Therapy order at DC: Not Indicated Exam - Physical Exam Narrative exam: GEN: WDWN, NAD, AWAKE, ALERT, ORIENTATED x 3 HEENT: NCAT, PERRL, EOMI, OP CLEAR NECK: SUPPLE, NO THYROMEGALY, NO JVD, NO LAD CVS: Regular bradycardia, NORMAL S1S2 LUNGS/CHEST: CTA B, NORMAL CHEST EXPANSION B, GOOD AIR ENTRY B ABD: SOFT, NTND, GBS, NO REBOUND OR GUARDING EXT/SKIN: NO SIGNIFICANT EDEMA OR RASH MSK: FROM X 4 EXTREMITIES NEURO: CN 2-12 GROSSLY INTACT, NO new FOCAL DEFICITS, abn gait PSY: CALM - Constitutional Vitals: Temp Pulse Resp BP Pulse Ox 97.9 F 54 L 18 149/74 99 12/23/16 07:15 12/23/16 07:15 12/23/16 07:15 12/23/16 07:15 12/23/16 07:15 Plan Activity: fall precautions, other Diet: regular Durable Medical Equipment Needed Upon Discharge: Cane Additional Instructions: Call for appointment with [facility] Dr. Wale Pinto. You can ask to speak with his Coordinator Ms. Gray or his nurse Tuyet DE LEON. Dr. Wale Pinto. Neurosurgery. [address] [place] [address], [place] [address]. [phone]. Bring CD images to the appointment. Follow up with: PRIMARY CARE, [Referring] - 3-5 Days
[2016-12-23 13:08] VITALS: BP 166/79
--- NOTE | 2016-12-23 13:33 | Consultation ---
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 I went over the mri OF THE SPINE AND THER IS MULTI LEVEL SPINAL STENOSIS UPPER AND LOWER L/ S SPINE WILL LET HIS LMD OUTSIDE F/U HE WILL NEED PHYSICAL THERAPY AND REHAB Medications and Allergies Allergies Allergy/AdvReac Type Severity Reaction Status Date / Time No Known Allergies Allergy Verified 12/21/16 01:18 Home Medications Medication Instructions Recorded Confirmed Last Taken Type No Known Home Medications [No 12/21/16 12/21/16 Unknown History Reported Home Medications] Active Meds: Active Medications Acetaminophen (Tylenol) 650 mg PO Q4H PRN PRN Reason: For Pain/Fever/Headache Last Admin: 12/22/16 05:19 Dose: 650 mg Aspirin (Aspirin) 325 mg PO QDAY [facility] Last Admin: 12/23/16 10:52 Dose: 325 mg Enoxaparin Sodium (Lovenox) 40 mg SUB-Q QDAY@2200 [facility] Last Admin: 12/22/16 21:07 Dose: 40 mg Lorazepam (Ativan) 1 mg IV Q1H PRN PRN Reason: Anxiety Stop: 12/23/16 14:00 Last Admin: 12/23/16 09:21 Dose: 1 mg Exam - Constitutional Vitals: Temp Pulse Resp BP Pulse Ox 97.5 F L 43 L 20 166/79 98 12/23/16 12:40 12/23/16 13:27 12/23/16 12:40 12/23/16 12:40 12/23/16 12:40 Results - Labs CBC & Chem 7: 12/22/16 04:34 12/22/16 04:34
--- NOTE | 2016-12-27 10:09 | Vascular Lab Report ---
CAROTID DUPLEX STUDY: RIGHT PSVEDV CCA PROX: 9320 CCA DIST: 8219 ICA PROX: 9922 ICA MID: 8927 ICA DIST: 8625 ECA: 45 VERT: 69 20 LEFT PSVEDV CCA PROX:61658 CCA DIST:59031 ICA PROX: 5314 ICA MID: 8131 ICA DIST: 8224 ECA: 60 VERT: 38 10 REASON FOR EXAM: TIA. COMMENTS ON THE RIGHT: Doppler frequency analysis is consistent with 16 to 49 percent diameter reduction of the internal carotid artery. Minimal amount of plaque is seen. The common carotid artery is patent. The external carotid artery is patent. The vertebral artery has antegrade flow. COMMENTS ON THE LEFT: Doppler frequency analysis is consistent with 16 to 49 percent diameter reduction of the internal carotid artery. Minimal amount of plaque is seen. The common carotid artery is patent. The external carotid artery is patent. The vertebral artery has antegrade flow. IMPRESSION: Less than 50% diameter reduction in the internal carotid arteries bilaterally. Consider repeat carotid artery duplex in 12 months.
== END 2016-12-23 14:41 | disposition home or self-care (01) | DRG 552 ==
LOC: ED 23:13 → 4A 12-21 02:20
PROVIDERS: ADMIT Internal Medicine; ATTEND Internal Medicine
DX: M50.21 Other cervical disc displacement, high cervical region (principal); R00.1 Bradycardia, unspecified; M54.9 Dorsalgia, unspecified; G89.4 Chronic pain syndrome; I10 Essential (primary) hypertension; Z79.899 Other long term (current) drug therapy; Z87.891 Personal history of nicotine dependence; Z79.891 Long term (current) use of opiate analgesic; Z79.82 Long term (current) use of aspirin; M48.06 Spinal stenosis, lumbar region
CPT/HCPCS: 36415; 70450; 70544; 70551; 72141; 72146; 72148; 80048; 81001; 82550; 82553; 82962; 84443; 84484; 85025; 85027; 85610; 85670; 85730; 93005; 93010; 93306; 93880; G8978-GP; G8979-GP; J1650; J2060; J7030